=== PATIENT | female | born 2005 | race Caucasian/White ===

== ENCOUNTER 2024-10-17 16:32 | Emergency (ER) | payer SELFPAY | END 2024-10-17 16:56 | disposition home or self-care (01) | PROVIDERS: Emergency Provider Nurse Practitioner Family | DX: J02.0 Streptococcal pharyngitis (principal); Z20.822 Contact with and (suspected) exposure to COVID-19 | CPT/HCPCS: 87426; 87637; 87804; 87880; 99211; 99213; G0463 ==